=== PATIENT | male | born 1995 | race African-American/Black ===

== ENCOUNTER 2017-06-15 22:13 | Inpatient (IN) | payer OTHER ==
[~2017-06-15] VITALS: Ht 160 cm; Wt 58.2 kg
[2017-06-15 22:49] LABS: HEMATOCRIT 40.9 % (38.0-50.0); MCH 30.1 PG (29.0-34.0); MCHC 36.7 G/DL (30.0-36.0); RBC DIS.WIDTH-CV 11.9 % (11.8-14.6); RBC DIS.WIDTH-SD 35.3 % (39-53); RED BLOOD COUNT 4.99 M/uL (4.00-5.50); WHITE BLOOD COUNT 14.7 K/uL (4.1-10.2)
[2017-06-15 23:02] LABS: CHLORIDE 106 mEq/L (99-109); POTASSIUM 3.3 mEq/L (3.7-5.4); SODIUM 142 mEq/L (136-147)
[2017-06-15 23:04] LABS: GLUCOSE 74 mg/dL (70-99)
[2017-06-15 23:05] LABS: ANION GAP 10 MEQ/L (2-14)
[2017-06-15 23:06] LABS: TOTAL BILIRUBIN 0.5 mg/dL (0.0-1.0)
[2017-06-15 23:07] LABS: SERUM ETHYL ALCOHOL < 10 mg/dL
[2017-06-15 23:08] LABS: ALKALINE PHOSPHATASE 50 IU/L (3-129); GFR ESTIMATE (CALCULATED) > 59 mL/min/
[2017-06-15 23:09] LABS: UREA NITROGEN (BUN) 9 mg/dL (9-23)
[2017-06-15 23:28] LABS: HEMATOLOGY COMMENT 1 SN; PLAT.SUFFICIENCY ADEQUATE; PLATELET COUNT UNABLE TO REPORT K/uL (156-360)
[2017-06-16 01:22] VITALS: BP 115/83
[2017-06-16 07:42] VITALS: BP 107/55
== END 2017-06-16 11:41 | disposition home or self-care (01) | DRG 882 ==
LOC: EME 22:13 → EDBD 22:13 → EDOF 23:22 → 1WEST 23:22
PROVIDERS: Emergency Medicine
DX: F43.20 Adjustment disorder, unspecified (principal); R45.851 Suicidal ideations
CPT/HCPCS: 80053; 81003; 85027; 90837; 99281; 99285; G0480